=== PATIENT | female | born 1965 | race Caucasian/White ===

== ENCOUNTER 2019-03-25 14:16 | Inpatient (IN) | payer MEDICAID, OTHER ==
[~2019-03-25] VITALS: Ht 154.9 cm; Wt 60.3 kg
[2019-03-25] MEDS ORDERED: ICOS1CAP PO (14:36)
[2019-03-25] MEDS ORDERED: ZINC PO (14:36)
[2019-03-25] MEDS ORDERED: POTASSIUM AMINO ACID PO (14:36)
[2019-03-25] MEDS ORDERED: MORPHINE SULFATE 2 MG/1 ML DISP.SYRIN IV ONE (14:45)
[2019-03-25] MEDS ORDERED: ONDANSETRON 4 MG/2 ML VIAL IV ONE ×2 (14:45→18:15)
[2019-03-25] MEDS ORDERED: MORPHINE SULFATE 4 MG/1 ML DISP.SYRIN ONE (14:58)
[2019-03-25] MEDS ORDERED: ONDANSETRON 4 MG/2 ML VIAL ONE ×2 (14:58→18:16)
[2019-03-25 15:28] LABS: BASOPHILS # (AUTO) 0.1 K/uL (0.0-8.0); BASOPHILS % (AUTO) 0.4 % (0.0-2.0); EOSINOPHILS % (AUTO) 0.2 % (0.0-7.0); HEMATOCRIT 38.3 % (31.2-41.9); HEMOGLOBIN 13.3 g/dL (10.9-14.3); LYMPHOCYTES # (AUTO) 1.3 K/uL (20.0-40.0); LYMPHOCYTES % (AUTO) 9.3 % (20.5-51.5); MEAN CORPUSCULAR HEMOGLOBIN 29.4 uug (24.7-32.8); MEAN CORPUSCULAR HGB CONC 35 g/dL (32.3-35.6); MEAN CORPUSCULAR VOLUME 84.6 fL (75.5-95.3); MONOCYTES # (AUTO) 0.5 K/uL (2.0-10.0); MONOCYTES % (AUTO) 3.3 % (0.0-11.0); NEUTROPHILS # (AUTO) 12.1 K/uL (1.8-8.9); NEUTROPHILS % (AUTO) 86.8 % (38.5-71.5); RED BLOOD CELL COUNT(AUTO) 4.52 MIL/uL (3.63-4.92)
[2019-03-25 15:33] LABS: PLATELET COUNT (AUTO) 199 K/uL (179-408)
[2019-03-25 15:34] LABS: WHITE BLOOD COUNT (AUTO) 13.9 K/uL (3.8-11.8)
[2019-03-25 17:37] LABS: POTASSIUM 3.6 mmol/L (3.5-5.1)
[2019-03-25 17:38] LABS: BILIRUBIN,TOTAL 0.6 mg/dL (0.1-1.0); CREATININE 0.6 mg/dL (0.6-1.3)
[2019-03-25 17:39] LABS: TOTAL PROTEIN, SERUM 7.3 g/dL (6.4-8.2)
[2019-03-25 17:44] LABS: *BILIRUBIN,URIN NEGATIVE (NEGATIVE); *BLOOD, URINE 2+ (NEGATIVE); *COLOR,URINE YELLOW (YELLOW); *KETONES,URINE 3+ (NEGATIVE); *UROBILINOGEN,URINE 0.2 E.U./dl (NORMAL); LEUKOCYTE ESTERASE ,URINE NEGATIVE (NEGATIVE); NITRITE, URINE NEGATIVE (NEGATIVE); UGLUCOSE 2+ (NEGATIVE)
[2019-03-25 17:51] LABS: BILIRUBIN,DIRECT 0.1 mg/dL (0.0-0.2)
[2019-03-25 17:55] LABS: *CLARITY,URINE HAZY (CLEAR)
[2019-03-25 17:58] LABS: MUCUS,URINE MODERATE /LPF (0-FEW); SQUAMOUS EPITHELIAL CELL,UR MODERATE /HPF (NONE SEEN); WBC,URINE 0-3 /HPF (0-3)
[2019-03-25] MEDS ORDERED: IV NORMAL SALINE 500 ML BAG IV ONE (18:00)
[2019-03-25] MEDS ORDERED: IV NORMAL SALINE 250 ML IV ONE (18:11)
[2019-03-25] MEDS ORDERED: IOHEXOL 300MG/ML 100 ML INFUS..BTL ONE (18:11)
[2019-03-25] MEDS ORDERED: SWABABLE VALVE TRANSFER SET EA MC ONE (18:11)
[2019-03-25] MEDS ORDERED: LORAZEPAM 2 MG/1 ML VIAL IV ONE (18:15)
[2019-03-25] MEDS ORDERED: LORAZEPAM 2 MG/1 ML VIAL ONE (18:15)
[2019-03-25 20:00] VITALS: BP 137/77
[2019-03-25] MEDS: IV NS 1000 ML 1,000 ML IV PRN (22:06)
[2019-03-25] MEDS: ONDANSETRON 4 MG/2 ML VIAL IV PRN (22:20)
[2019-03-25] MEDS: MORPHINE SULFATE 2 MG/1 ML DISP.SYRIN IV PRN (22:20)
[2019-03-26 06:00] VITALS: BP 110/62
[2019-03-26] MEDS: IV NS 1000 ML 1,000 ML IV PRN ×3 (06:38→20:38)
[2019-03-26] MEDS: MORPHINE SULFATE 2 MG/1 ML DISP.SYRIN IV PRN ×3 (06:39→20:38)
[2019-03-26 07:22] LABS: BASOPHILS % (AUTO) 0.3 % (0.0-2.0); LYMPHOCYTES # (AUTO) 0.9 K/uL (20.0-40.0); LYMPHOCYTES % (AUTO) 9.5 % (20.5-51.5); MONOCYTES # (AUTO) 0.4 K/uL (2.0-10.0); MONOCYTES % (AUTO) 4.5 % (0.0-11.0); NEUTROPHILS # (AUTO) 7.9 K/uL (1.8-8.9)
[2019-03-26 07:23] LABS: WHITE BLOOD COUNT (AUTO) 11.2 K/uL (3.8-11.8)
[2019-03-26 07:24] LABS: HEMOGLOBIN 10.5 g/dL (10.9-14.3); MEAN CORPUSCULAR HEMOGLOBIN 32.5 uug (24.7-32.8); MEAN CORPUSCULAR VOLUME 83.5 fL (75.5-95.3); RED BLOOD CELL COUNT(AUTO) 4.09 MIL/uL (3.63-4.92)
[2019-03-26 07:25] LABS: MEAN CORPUSCULAR HGB CONC 39 g/dL (32.3-35.6); NEUTROPHILS % (AUTO) 85.7 % (38.5-71.5); PLATELET COUNT (AUTO) 228 K/uL (179-408)
[2019-03-26 07:27] LABS: HEMATOCRIT 30.4 % (31.2-41.9)
[2019-03-26] MEDS ORDERED: PANTOPRAZOLE SODIUM 40 MG VIAL IV SCH (09:00)
[2019-03-26 09:06] LABS: CREATININE 0.5 mg/dL (0.6-1.3); MAGNESIUM 1.6 mg/dL (1.8-2.4); PHOSPHOROUS 3.2 mg/dL (2.5-4.9); POTASSIUM 3.5 mmol/L (3.5-5.1)
[2019-03-26] MEDS ORDERED: DEXTROSE 50% 50 ML DISP.SYRIN IV PRN (11:00)
[2019-03-26] MEDS: BLOOD SUGAR DIAGNOSTIC 1 EACH STRIP VI SCH ×2 (11:18→17:15)
[2019-03-26] MEDS: GEMFIBROZIL 600 MG TABLET PO SCH ×2 (11:25→20:38)
[2019-03-26] MEDS: INSULIN REGULAR, HUMAN 300 UNIT/3 ML VIAL SQ PRN (11:25)
[2019-03-26 11:45] VITALS: BP 113/65
[2019-03-26] MEDS: FAMOTIDINE. 20 MG/2 ML VIAL IV SCH ×2 (12:34→20:38)
[2019-03-26 16:14] VITALS: BP 102/61
[2019-03-26 20:00] VITALS: BP 110/65
[2019-03-27] MEDS: BLOOD SUGAR DIAGNOSTIC 1 EACH STRIP VI SCH ×4 (00:12→17:20)
[2019-03-27] MEDS: MORPHINE SULFATE 2 MG/1 ML DISP.SYRIN IV PRN ×4 (02:44→21:44)
[2019-03-27] MEDS: IV NS 1000 ML 1,000 ML IV PRN ×3 (03:46→19:17)
[2019-03-27] MEDS: INSULIN REGULAR, HUMAN 300 UNIT/3 ML VIAL SQ PRN ×2 (05:38→11:52)
[2019-03-27 05:51] VITALS: BP 107/61
[2019-03-27 06:31] LABS: AMYLASE 22 U/L (25-115); LIPASE 401 U/L (73-393)
[2019-03-27] MEDS: GEMFIBROZIL 600 MG TABLET PO SCH ×2 (08:05→20:35)
[2019-03-27] MEDS: FAMOTIDINE. 20 MG/2 ML VIAL IV SCH ×2 (08:12→20:35)
[2019-03-27] MEDS ORDERED: ACETAMINOPHEN 325 MG TABLET PO PRN (10:15)
[2019-03-27 11:38] VITALS: BP 117/67
[2019-03-27] MEDS ORDERED: IV NORMAL SALINE 250 ML IV ONE (12:28)
[2019-03-27] MEDS ORDERED: IOHEXOL 300MG/ML 100 ML INFUS..BTL ONE (12:28)
[2019-03-27] MEDS ORDERED: SWABABLE VALVE TRANSFER SET EA MC ONE (12:28)
[2019-03-27 15:39] VITALS: BP 106/61
[2019-03-27 20:00] VITALS: BP 116/66
[2019-03-28] VITALS (12 sets, daily range): BP systolic 104–136; BP diastolic 56–75
[2019-03-28] MEDS: BLOOD SUGAR DIAGNOSTIC 1 EACH STRIP VI SCH ×9 (00:11→23:10)
[2019-03-28] MEDS: INSULIN REGULAR, HUMAN 300 UNIT/3 ML VIAL SQ PRN ×2 (00:15→11:41)
[2019-03-28] MEDS: IV NS 1000 ML 1,000 ML IV PRN ×2 (02:13→09:06)
[2019-03-28] MEDS: MORPHINE SULFATE 2 MG/1 ML DISP.SYRIN IV PRN ×2 (02:24→08:14)
[2019-03-28] MEDS: GEMFIBROZIL 600 MG TABLET PO SCH ×2 (08:07→21:02)
[2019-03-28] MEDS: FAMOTIDINE. 20 MG/2 ML VIAL IV SCH (08:13)
[2019-03-28] MEDS ORDERED: IMIPENEM/CILASTATIN SODIUM 500 MG in IV NORMAL SALINE 100 ML IV SCH (09:15)
[2019-03-28] MEDS: MEROPENEM 1 G in IV NORMAL SALINE 100 ML IV SCH ×3 (10:15→21:40)
[2019-03-28] MEDS: MORPHINE SULFATE 4 MG/1 ML DISP.SYRIN IV PRN ×3 (13:05→21:13)
[2019-03-28] MEDS ORDERED: INSULIN REGULAR, HUMAN 100 UNIT in IV NORMAL SALINE 99 ML IV PRN ×2 (16:00)
[2019-03-28] MEDS: IV D5/ 0.9% NACL 1,000 ML IV PRN (17:20)
[2019-03-28] MEDS: FAMOTIDINE 20 MG TABLET PO SCH (21:02)
[2019-03-29] VITALS (14 sets, daily range): BP systolic 108–138; BP diastolic 59–81
[2019-03-29] MEDS: BLOOD SUGAR DIAGNOSTIC 1 EACH STRIP VI SCH ×14 (00:05→14:41)
[2019-03-29] MEDS: MORPHINE SULFATE 4 MG/1 ML DISP.SYRIN IV PRN ×5 (00:51→15:57)
[2019-03-29] MEDS: IV D5/ 0.9% NACL 1,000 ML IV PRN (04:42)
[2019-03-29 04:57] LABS: BASOPHILS # (AUTO) 0.1 K/uL (0.0-8.0); BASOPHILS % (AUTO) 0.8 % (0.0-2.0); EOSINOPHILS # (AUTO) 0.2 K/uL (0.0-0.7); EOSINOPHILS % (AUTO) 1.8 % (0.0-7.0); HEMATOCRIT 32.2 % (31.2-41.9); HEMOGLOBIN 11.3 g/dL (10.9-14.3); MEAN CORPUSCULAR HEMOGLOBIN 28.9 uug (24.7-32.8); MEAN CORPUSCULAR HGB CONC 35 g/dL (32.3-35.6); MEAN CORPUSCULAR VOLUME 82.1 fL (75.5-95.3); MONOCYTES # (AUTO) 0.7 K/uL (2.0-10.0); NEUTROPHILS # (AUTO) 7.2 K/uL (1.8-8.9); NEUTROPHILS % (AUTO) 78.4 % (38.5-71.5); PLATELET COUNT (AUTO) 179 K/uL (179-408); RED BLOOD CELL COUNT(AUTO) 3.92 MIL/uL (3.63-4.92); WHITE BLOOD COUNT (AUTO) 9.2 K/uL (3.8-11.8)
[2019-03-29] MEDS ORDERED: IV NORMAL SALINE 250 ML IV PRN (05:00)
[2019-03-29 05:08] LABS: CARBON DIOXIDE 22 mmol/L (21-32); CHLORIDE 100 mmol/L (98-107); CREATININE 0.4 mg/dL (0.6-1.3); GLUCOSE 173 mg/dL (74-106); MAGNESIUM 1.6 mg/dL (1.8-2.4); PHOSPHOROUS 2.8 mg/dL (2.5-4.9); UREA NITROGEN, BLOOD 4 mg/dL (7-18)
[2019-03-29 05:14] LABS: POTASSIUM 2.8 mmol/L (3.5-5.1)
[2019-03-29] MEDS: MEROPENEM 1 G in IV NORMAL SALINE 100 ML IV SCH ×2 (05:22→14:00)
[2019-03-29] MEDS: FAMOTIDINE 20 MG TABLET PO SCH (08:48)
[2019-03-29] MEDS: ONDANSETRON 4 MG/2 ML VIAL IV PRN ×2 (08:49→15:14)
[2019-03-29] MEDS: GEMFIBROZIL 600 MG TABLET PO SCH (10:33)
[2019-03-29] MEDS ORDERED: POTASSIUM CHLORIDE 20 MEQ TAB.PRT.SR PO ONE (12:30)
[2019-03-29] MEDS ORDERED: POTASSIUM CHLORIDE 20 MEQ in IV D5/ 0.9% NACL 1,000 ML IV PRN (12:30)
[2019-03-29] MEDS: MAGNESIUM SULFATE/D5W 100 ML IV SCH ×2 (12:48→13:51)
[2019-03-29] MEDS ORDERED: GEMF600T5 PO (14:41)
[2019-03-29] MEDS ORDERED: METF-442 PO (14:41)
[2019-03-29] MEDS ORDERED: GLIP5TAB13 PO (14:41)
== END 2019-03-29 17:00 | disposition home or self-care (01) | DRG 282 ==
LOC: ER 14:16 → MEDSURG3 19:57 → CCU 03-28 16:04
DX: K85.91 Acute pancreatitis with uninfected necrosis, unspecified (principal); E11.65 Type 2 diabetes mellitus with hyperglycemia; E83.42 Hypomagnesemia; R16.0 Hepatomegaly, not elsewhere classified; D64.9 Anemia, unspecified; E78.1 Pure hyperglyceridemia; K29.70 Gastritis, unspecified, without bleeding; E78.5 Hyperlipidemia, unspecified; K86.3 Pseudocyst of pancreas
CPT/HCPCS: 36415; 70030-TC; 71101; 83690; 83735; 84100; 84478; 85025; 85730; A4663; G0378; J1815; J2060; J2185; J2270; J2405; J3475; J3480; J3490; J7030; J7042; J7050; Q9967